=== PATIENT | female | born 1990 | race Hispanic/Latino ===

== ENCOUNTER 2025-05-27 20:18 | Emergency (ER) | payer SELFPAY ==
[~2025-05-27] VITALS: Ht 167.6 cm; Wt 117.5 kg
--- NOTE | 2025-05-27 20:24 | NUR ---
TRIAGE EDIT TO ADD LMP
--- NOTE | 2025-05-27 20:36 | ERN ---
ED Note History of Present Illness Stated Complaint: ABSCESS LEFT BREAST Chief Complaint: Abscess Time Seen by MD: 20:31 Dictation: PATIENT IS A 34-YEAR-OLD FEMALE COMING IN TODAY WITH LEFT LATERAL BREAST PAIN SWELLING SHE HAS HAD FOR 2-3 DAYS. SHE IS NOT , NO NIPPLE DISCHARGE. SHE DENIES ANY HISTORY OF MASTITIS/CANCER/FIBROCYSTIC DISEASE. NO PRIMARY CARE DOCTOR. SHE HAS NOT TAKEN ANYTHING PRIOR TO ARRIVAL FOR PAIN. Allergies: Coded Allergies: No Known Allergies (Unverified Allergy, Unknown, 05/27/25) Past Medical History Past Medical History: Hypertension Surgical History: None LMP: May 27, 2025 RN Note Reviewed/Agreed w/PFSH: Yes Review of System Dictation CONSTITUTIONAL: NEGATIVE EXCEPT FOR HPI HEAD/FACE: NEGATIVE EXCEPT FOR HPI EENT: NEGATIVE EXCEPT FOR HPI RESPIRATORY: NEGATIVE EXCEPT FOR HPI LEFT LATERAL BREATHS PAIN GASTROINTESTINAL/ABDOMINAL: NEGATIVE EXCEPT FOR HPI GENITOURINARY: NEGATIVE EXCEPT FOR HPI MUSCULOSKELETAL: NEGATIVE EXCEPT FOR HPI INTEGUMENTARY: NEGATIVE EXCEPT FOR HPI NEUROLOGICAL/PSYCH: NEGATIVE EXCEPT FOR HPI HEMATOLOGIC/LYMPHATIC: NEGATIVE EXCEPT FOR HPI ALL SYSTEMS NEGATIVE, EXCEPT NOTED ABOVE. 13 POINT REVIEW OF SYSTEMS ASSESSED AND ALL NEGATIVE EXCEPT FOR ABOVE. Initial Vital Sign VS Vital Signs Date Time Temp Pulse Resp B/P (MAP) Pulse Ox O2 Delivery O2 Flow Rate FiO2 05/27/25 20:19 98.8 86 20 169/117 100 Room Air Physical Exam Dictation VITAL SIGNS REVIEWED ARPAN ELAINEBUREAU DIRECTOR NURSE IN ROOM WITH THE EXAM GENERAL APPEARANCE: ALERT, ORIENTED X 3, MILD ACUTE DISTRESS, WELL DEVELOPED, NOURISHED. OBESE HEAD AND FACE: NON-TRAUMATIC. EYES: PERRL, PINK CONJUNCTIVAS, EYELID NO TRAUMA, ANTERIOR CHAMBER WITH ARCUS SENILIS. EARS: PINNAS INTACT AND NO SIGNS OF TRAUMA OR ERYTHEMA EAR CANALS CLEAR AND NO DISCHARGE TM NO ERYTHEMA NOSE: NO DISCHARGE, NO BLEEDING. OROPHARYNX: MOUTH NORMAL, TONGUE PINK, PHARYNX CLEAR,NO ERYTHEMA, TONSILS NO EXUDATES, NO ABSCESSES NOTED, MUCOUS MEMBRANE MOIST NECK: SUPPLE, NON-TENDER, NO THYROMEGALY, NO MASSES, NO JVD, NO BRUITS BREAST LEFT BREAST WITH EVERTED NIPPLE. THERE WAS NO PULLED A ORANGE SHE DOES HAVE SOME MILD ERYTHEMA TO THE LEFT LATERAL BREATHS APPROXIMATE 03:00. THERE WAS NO DIMPLING BREASTS ARE SYMMETRIC. NO PAIN IN THE TAIL OF PHELAN CHEST:NO TENDERNESS, NO CREPITUS, NO PARADOXICAL MOVEMENT, NO RETRACTIONS LUNGS:CLEAR, WELL-VENTILATED, SYMMETRIC, NO RALES, NO WHEEZING, NO RHONCHI, NO STRIDOR, GOOD BREATH SOUNDS BILATERALLY HEART: REGULAR RATE, REGULAR RHYTHM, NO MURMUR, NO GALLOPS VASCULAR: NO PERIPHERAL EDEMA, ABDOMEN: SOFT, POSITIVE BOWEL SOUNDS, NONDISTENDED, NO GUARDING, NONTENDER, NO REBOUND, NO MASSES NO HEPATOMEGALY, NO SPLENOMEGALY, NO REED'S SIGN, NO HERNIAS. RECTAL: DEFERRED GENITAL: DEFERRED NEUROLOGICAL: NORMAL SPEECH, MOTOR FUNCTION INTACT, SENSORY FUNCTION INTACT MUSCULOSKELETAL: NECK NONTENDER, FULL RANGE OF MOTION, BACK NONTENDER, FULL RANGE OF MOTION, EXTREMITIES: NONTENDER, FULL RANGE OF MOTION SKIN: COLOR PINK, DRY, NO TURGOR, NO RASH, NO LACERATIONS, NO ABRASIONS, NO CONTUSIONS. LYMPHATIC: DEFERRED Results (Laboratory/Radiology) Labs Reviewed?: Yes ED Course ED Course Orders Procedure Category Date Status Time Clindamycin 150mg Cap PHA 05/27/25 Verified (Cleocin 150mg Cap 22:30 Acetaminophen 500mg PHA 05/27/25 Verified Tab (Tylenol 500mg T 22:30 Vital Signs Date Time Temp Pulse Resp B/P (MAP) Pulse Ox O2 Delivery O2 Flow Rate FiO2 05/27/25 20:19 98.8 86 20 169/117 100 Room Air 2230/PATIENT WILL BE TREATED EMPIRICALLY FOR POSSIBLE EARLY ABSCESS OF THE LEFT BREAST. SHE IS AFEBRILE AT THIS TIME ADDITIONALLY SHE HAS A BLOOD PRESSURE 169/117 STATES SHE HAS NOT BEEN ON BLOOD PRESSURE MEDICATIONS FOR SEVERAL YEARS. WE WILL START HER ON ENALAPRIL AND HAVE HER FOLLOW UP WITH HER DOCTOR NEXT WEEK. Medical Decision Making MDM MEDICAL DECISION-MAKING BASED ON PHYSICAL EXAM ENOUGH SHE HAD OF LEFT BREAST WITH FEMALE ESCORT POSSIBLE EARLY ABSCESS HOWEVER NO INDURATION NO DRAINAGE. PATIENT WILL BE LOADED WITH CLINDAMYCIN SHE WILL BE SENT HOME WITH CLINDAMYCIN AND ENALAPRIL FOR HER BLOOD PRESSURE REFERRED TO /GENERAL SURGERY NEXT WEEK. DX & DISP Disposition: Discharge Departure Impression: Primary Impression: Mastodynia of left breast Additional Impression: Uncontrolled hypertension Condition: Stable Scripts Enalapril Maleate (Enalapril Maleate) 10 Mg Tablet 1 TAB PO DAILY for 30 Days, #30 TAB 0 Refills Prov: ANISH WEAVER OPERATING ROOM SURGICAL TECHNOLOGIST 05/27/25 Clindamycin HCl (Clindamycin HCl) 300 Mg Capsule 1 CAP PO QID for 10 Days, #40 CAP 0 Refills Prov: ANISH WEAVER NP 05/27/25 Additional Instructions: FOLLOW-UP WITH PRIMARY CARE PROVIDER IN 1 TO 2 DAYS. TAKE MEDICATIONS DIRECTED HERE IN THE EMERGENCY ROOM. OKAY TO CONTINUE HOME MEDICATIONS UNLESS OTHERWISE DISCUSSED DURING YOUR VISIT IN THE EMERGENCY ROOM TODAY. RETURN TO YOUR NEAREST EMERGENCY ROOM IF SYMPTOMS WORSEN OR IF THERE IS NO IMPROVEMENT. CALL 911 IF YOU NEED IMMEDIATE ASSISTANCE. TAKE TYLENOL OR MOTRIN [id number] NEEDED AND IF NO CONTRAINDICATIONS ARE PRESENT. INCREASE ORAL HYDRATION. A WOUND CULTURE OR URINE CULTURE WAS ORDERED HERE IN THE EMERGENCY ROOM DEPARTMENT PLEASE FOLLOW-UP WITH PRIMARY CARE PROVIDER AND ADVISE THEM TO GET REPEAT PORTS FROM OUR FACILITY. IF YOU HAD ANY ALICIA WRAP/SPLINTS THAT WERE APPLIED HERE, PLEASE DO NOT REMOVE THEM UNTIL YOU SEE YOUR PRIMARY CARE OR SPECIALTY. TAKE CLINDAMYCIN DIRECTED UNTIL GONE. TAKE ENALAPRIL DAILY DIRECTED FOR YOUR BLOOD PRESSURE. FOLLOW UP WITH SURGEON IN THE NEXT 2-3 DAYS IF NO IMPROVEMENT. WHEN YOU START ANTIBIOTICS TAKE TWO CAPSULES BY MOUTH 1ST DOSE THEN ONE CAPSULE EVERY 6 HOURS DIRECTED UNTIL GONE. Referrals: SELF,REFERRAL (PCP) WILMAR ZHENG MD Time of Disposition: 22:29 I have reviewed the case, and I agree with, Diagnosis and Plan ANISH WEAVER NP May 27, 2025 20:36
[2025-05-27] MEDS ORDERED: CLIN-141 PO (22:30)
[2025-05-27] MEDS ORDERED: ENAL-89 PO (22:30)
[2025-05-27 22:35] VITALS: PULSE 83; RESP 18; TEMP 98.6; O2SAT 99
[2025-05-27] MEDS: CLINDAMYCIN 150 MG CAP PO ONE (22:37)
[2025-05-27 22:38] VITALS: BP 158/89
== END 2025-05-27 22:41 | disposition home or self-care (01) ==
LOC: EDH 20:18
DX: N64.4 Mastodynia (principal); I10 Essential (primary) hypertension
CPT/HCPCS: 99284